=== PATIENT | male | born 1980 | race Caucasian/White ===

== ENCOUNTER 2017-06-16 23:33 | Emergency (ER) | payer OTHER ==
[2017-06-17] MEDS ORDERED: Acetaminophen TAB* 325 MG PO ONE (00:07)
[2017-06-17] MEDS ORDERED: Ibuprofen TAB* 800 MG PO ONE (00:07)
[2017-06-17] MEDS ORDERED: NS 0.9% 1000 ML* 1,000 ML IV ONE ×2 (00:07→02:23)
[2017-06-17 01:08] LABS: ABS Basophils 0 10^3/ul (0-0.2); ABS Eosinophils 0.1 10^3/ul (0-0.6); ABS Lymphocytes 0.7 10^3/ul (1.0-4.8); ABS Monocytes 0.6 10^3/ul (0-0.8); ABS Neutrophils 5.3 10^3/ul (1.5-7.7); ABS Nucleated RBC 0 10^3/ul; Eosinophil % 0.9 % (0-6); Hematocrit 42 % (42-52); Hemoglobin 14.3 g/dl (14.0-18.0); Mean Corpuscular HGB Conc 34 g/dl (31-36); Mean Corpuscular Hemoglobin 32 pg (27-31); Mean Corpuscular Volume 92 fL (80-94); Mean Platelet Volume 10 um3 (7.4-10.4); Nucleated Red Blood Cells % 0; Platelet Count 155 10^3/ul (150-450); Red Blood Count 4.53 10^6/ul (4.0-5.4); Red Cell Distribution Width 13 % (10.5-15); White Blood Count 6.7 10^3/ul (3.5-10.8)
[2017-06-17 01:19] LABS: EGFR Non-African American 91.9 (>60)
[2017-06-17] MEDS ORDERED: Potassium Chlor TAB* 20 MEQ TAB.ER PO ONE (02:21)
[2017-06-17 03:39] LABS: Urine Appearance Clear; Urine Blood Negative (Negative); Urine Color Straw; Urine Ketones Trace (Negative); Urine Protein Negative (Negative); Urine Specific Gravity 1.006 (1.010-1.030); Urine Urobilinogen Negative (Negative)
--- NOTE | 2017-06-17 04:13 | ED ---
Wilbert Moore Tecjoon scribfredis for Dioni Maldonado MD on 06/17/17 at 0007 . HPI Febrile Illness - HPI Summary HPI Summary: This patient is a 37 year old male BIBA to [facility] accompanied by friends with a chief complaint of febrile illness a few hours ago. The pain is rated 7/10 in severity. Symptoms aggravated by nothing. Symptoms alleviated by nothing. Patient additionally reports sinus congestion, myalgia, fatigue, fever, rhinorrhea. - History of Current Complaint Chief Complaint: EDFluSymptoms Time Seen by Provider: 06/16/17 23:47 Hx Obtained From: Patient Onset/Duration: Started Hours Ago, Still Present Timing: Constant Temperature: 101 F Initial Severity: Moderate Current Severity: Moderate Pain Intensity: 7 Pain Scale Used: 0-10 Numeric Aggravating Factors: Nothing Alleviating Factors: Nothing Associated Signs and Symptoms: Other: - sinus congestion, myalgia, fatigue, fever, rhinorrhea. - Allergy/Home Medications Allergies/Adverse Reactions: Allergies Allergy/AdvReac Type Severity Reaction Status Date / Time No Known Allergies Allergy Verified 06/17/17 00:42 PMH/Surg Hx/FS Hx/Imm Hx Previously Healthy: Yes Opthamlomology History: Denies: Hx Legally Blind EENT History: Denies: Hx Deafness Infectious Disease History: No Infectious Disease History: Denies: Traveled Outside the [place] in Last 30 Days - Family History Known Family History: Negative: Hypertension - Social History Alcohol Use: None Hx Substance Use: No Substance Use Type: Reports: None Hx Tobacco Use: No Smoking Status (MU): Never Smoked Tobacco Review of Systems Positive: Fever, Fatigue ENT: Other - sinus congestion Positive: Nasal Discharge Positive: Myalgia All Other Systems Reviewed And Are Negative: Yes Physical Exam - Summary Physical Exam Summary: VITAL SIGNS: Reviewed. GENERAL: Patient is a well-developed and nourished male who is lying comfortable in the stretcher. Patient is not in any acute respiratory distress. HEAD AND FACE: No signs of trauma. No ecchymosis, hematomas or skull depressions. No sinus tenderness. EYES: PERRLA, EOMI x 2, No injected conjunctiva, no nystagmus. EARS: Hearing grossly intact. Ear canals and tympanic membranes are within normal limits. MOUTH: Oropharynx within normal limits. NECK: Supple, trachea is midline, no adenopathy, no JVD, no carotid bruit, no c- spine tenderness, neck with full ROM. CHEST: Symmetric, no tenderness at palpation LUNGS: Clear to auscultation bilaterally. No wheezing or crackles. CVS: Regular rate and rhythm, S1 and S2 present, no murmurs or gallops appreciated. ABDOMEN: Soft, non-tender. No signs of distention. No rebound no guarding, and no masses palpated. Bowel sounds are normal. EXTREMITIES: FROM in all major joints, no edema, no cyanosis or clubbing. NEURO: Alert and oriented x 3. No acute neurological deficits. Speech is normal and follows commands. SKIN: Dry and warm Triage Information Reviewed: Yes Vital Signs On Initial Exam: Initial Vitals Temp Pulse Resp BP Pulse Ox 101 F 91 18 123/80 98 06/16/17 23:46 06/16/17 23:46 06/16/17 23:46 06/16/17 23:46 06/16/17 23:46 Vital Signs Reviewed: Yes Diagnostics - Vital Signs Vital Signs Temp Pulse Resp BP Pulse Ox 06/16/17 23:46 101 F 91 18 123/80 98 - Laboratory Result Diagrams: 06/17/17 00:48 06/17/17 00:48 Lab Statement: Any lab studies that have been ordered have been reviewed, and results considered in the medical decision making process. - Radiology CXR Xray Interpretation: No Acute Changes Radiology Interpretation Completed By: ED Physician, Radiologist Course/Dx - Course Course Of Treatment: This patient is a 37 year old male BIBA to [facility] accompanied by friends with a chief complaint of febrile illness a few hours ago. Bloodwork Obtained. Urinalysis Obtained. In the ED course the patient was given Tylenol, Motrin. Patient will be discharged with a diagnosis of viral syndrome and follow up from PCP in 3 days. The patient is agreeable with this plan. - Diagnoses Provider Diagnoses: Viral syndrome Discharge - Discharge Plan Condition: Stable Disposition: HOME Patient Education Materials: Viral Syndrome (ED) Forms: *Work Release Referrals: No Primary Care Phys,NOPCP [Primary Care Provider] - 3 Days [facility] PHYSICIAN REFERRAL [Outside] - 3 Days Additional Instructions: Patient will be discharged with a diagnosis of viral syndrome and follow up from PCP in 3 days. The patient is agreeable with this plan. Return to the ED for new or worsening symptoms. The documentation as recorded by the Wilbert briceño Tecjoon accurately reflects the service I personally performed and the decisions made by me, Dioni Maldonado MD.
[2017-06-17 04:22] VITALS: BP 116/70
--- NOTE | 2017-06-17 09:43 | RAD ---
Indication: Fever. Flu symptoms. Comparison: No relevant prior exams available on the [facility] PACS. Technique: Upright AP 0015 hours Report: No focal pulmonary lesion, compelling alveolar consolidation, pleural effusion, pneumothorax. The heart, pulmonary vasculature, and mediastinal contours are unremarkable. IMPRESSION: No evidence for pneumonia. Negative exam.
== END 2017-06-17 04:25 | disposition home or self-care (01) ==
LOC: ED 23:33
DX: B34.9 Viral infection, unspecified (principal); R53.83 Other fatigue; R50.9 Fever, unspecified; J34.89 Other specified disorders of nose and nasal sinuses
CPT/HCPCS: 36415; 71045; 80053; 81003; 83605; 85025; 86140; 87040; 87502; 99283; A9270-GY